=== PATIENT | female | born 1970 | race Caucasian/White ===

== ENCOUNTER 2023-01-28 15:06 | Emergency (ER) | payer OTHER ==
[2023-01-28 15:17] VITALS: BP 133/84; PULSE 102; RESP 20; TEMP 98; BMI 30.1
[2023-01-28] MEDS ORDERED: SODIUM CHLORIDE 0.9% 500 ML INFUS.BAG IV ONE (16:32)
[2023-01-28 17:17] LABS: HEMATOCRIT 43.2 % (32.4-45.2); HEMOGLOBIN 14.4 GM/dL (10.7-15.3); MCH 28.1 pg (25.7-33.7); MCHC 33.3 g/dl (32.0-36.0); MEAN CELL VOLUME 84.4 fl (80-96); MEAN PLT VOLUME 8.1 fl (7.5-11.1); MONO % 9.8 % (3.8-10.2); NEUT % 56.2 % (42.8-82.8); PLATELET COUNT 269 10^3/uL (134-434); RBC 5.11 M/mm3 (3.60-5.2); RDW 13.9 % (11.6-15.6); WHITE BLOOD COUNT 7.3 K/mm3 (4.0-10.0)
[2023-01-28 17:18] LABS: PH,URINE 5.5 (5.0-8.0); URINE APPEARANCE CLEAR; URINE BILIRUBIN NEGATIVE (NEGATIVE); URINE COLOR YELLOW; URINE GLUCOSE (UA) NEGATIVE (NEGATIVE); URINE KETONE NEGATIVE (NEGATIVE); URINE LEUK ESTERASE NEGATIVE (NEGATIVE); URINE NITRITE NEGATIVE (NEGATIVE); URINE PROTEIN NEGATIVE (NEGATIVE)
[2023-01-28 17:38] LABS: ALBUMIN 3.3 g/dl (3.4-5.0); BLOOD UREA NITROGEN 23.5 mg/dL (7-18); CALCIUM 9.3 mg/dL (8.5-10.1)
[2023-01-28 17:41] LABS: CREATININE 0.9 mg/dL (0.55-1.3)
[2023-01-28 17:43] LABS: BILIRUBIN,TOTAL 0.4 mg/dL (0.2-1); TOT PROT 7.1 g/dl (6.4-8.2)
[2023-01-28 17:46] LABS: N-TERMINAL BNP 12.7 pg/ml (5-125)
== END 2023-01-28 18:00 | disposition home or self-care (01) ==
LOC: JER 15:06
DX: R10.13 Epigastric pain (principal); R53.83 Other fatigue; R14.0 Abdominal distension (gaseous); Z20.822 Contact with and (suspected) exposure to COVID-19
CPT/HCPCS: 0241U-QW; 36415; 71045-TC-FY; 80053; 81003; 83690; 83880; 84484; 85025; 87086; 93005; 93010; 99285-25